=== PATIENT | female | born 1980 | race Caucasian/White ===

== ENCOUNTER 2016-10-27 17:34 | Emergency (ER) | payer OTHER ==
--- NOTE | ~2016-10-27 | EKG ---
PATIENT: DANIELLE BRITO UNIT #: [id number] Ventricular Rate: 75 BPM Atrial Rate: 75 BPM P-R Interval: 128 ms QRS Duration: 82 ms Q-T Interval: 380 ms QTC Calculation(Bezet): 424 ms P [place]: 8 degrees Calculated R [place]: 24 degrees Calculated T [place]: 19 degrees Diagnosis Line: Normal sinus rhythm Diagnosis Line: Normal ECG Diagnosis Line: When compared with ECG of 29-JAN-2016 18:42, Diagnosis Line: No significant change was found Diagnosis Line: Confirmed by JANETH PIERRE MD ([id number]) on Diagnosis Line: 12/13/2016 4:05:21 PM INTERPRETING MD: ERICH
--- NOTE | ~2016-10-27 | CR72 ---
[facility]. [facility] A Service of [facility] RADIOLOGY TEXT RESULTS PATIENT: DANIELLE BRITO LOCATION: SED : 82 UNIT #: [id number] AGE: [address]: Abiel Lizarraga MD SEX: F ORDER DR: [id number] [place] [id number] E MR#: [id number] Acc #: [id number] NAME: DANIELLE BRITO : 1980 SEX: F STUDY DATE/TIME: 10/27/2016 17:35 UNIT: SED ROOM: STUDY DESCRIPTION: CR Chest Single View Portable Attending Physician: Abiel Lizarraga M.D. Ordering Physician: Abiel Lizarraga M.D. Primary Care Physician: Lauren Pate A.P.R.N. MEDICAL IMAGING REPORT This report is preliminary unless electronic signature is present. EXAM Portable chest, 10/27/2016 HISTORY Chest pain and left arm pain and left leg pain beginning today. No known injury, short of breath, chest congestion. FINDINGS A single AP portable view of the chest shows both lungs to be clear. The heart is normal in size. The mediastinal contour is normal. No significant bone abnormalities are seen. IMPRESSION Normal portable chest. Dictated by... Cyrus Peacock M.D. THIS IS AN ELECTRONICALLY VERIFIED REPORT Cyrus Peacock M.D. at 10/28/2016 10:55 AM JIN/kathy TD: 10/28/2016 02:11 JOB #: [id number] MEDICAL IMAGING REPORT
[~2016-10-27 17:34] MED LIST: BIRTH CONTROL PILL PO; GLUMETZA500 MG/BOT; KLONOPIN PO; MEDI-MECLIZINE25 M1 PO; MUCINEX D ER T1 EAC1 PO; PRENATAL COMPLE1 TAB; PROTONIX PO; SYNTHROID PO; ZOLOFT PO
[2016-10-27 18:00] LABS: POC - CKMB 1.2 ng/mL (0.0-7.9); POC - TROPONIN <0.05 ng/mL (<=0.05)
[2016-10-27 18:01] LABS: BASOPHIL% 0.8 % (0-2.5); EOSINOPHIL# 0.1 X10e3 (0-0.7); EOSINOPHIL% 1.2 % (0.0-7.0); HEMATOCRIT 42.3 % (35.0-45.0); HEMOGLOBIN 14.3 gm/dL (12.0-16.0); LYMPHOCYTE# 2.1 X10e3 (1.0-3.5); LYMPHOCYTE% 33.2 % (17.0-45.0); MEAN CORPUSCULAR HEMOGLOBIN 30.9 PG (28-34); MEAN CORPUSCULAR HGB CONC 33.9 g/dL (30-36); MONOCYTE# 0.5 X10e3 (0-1.0); MONOCYTE% 7.5 % (3.0-12.0); NEUTROPHIL# 3.7 X10e3 (1.5-7.1); NEUTROPHIL% 57.3 % (40-75); PLATELET COUNT 226 X10e3 (140-420); RED BLOOD COUNT 4.65 X10e (3.90-5.30); RED CELL DISTRIBUTION WIDTH 12.5 % (11.0-15.5); WHITE BLOOD COUNT 6.4 X10e3 (4.0-10.5)
[2016-10-27 18:05] LABS: DIFF IND NO
[2016-10-27 18:10] LABS: BLOOD UREA NITROGEN 12 mg/dL (9-23); CARBON DIOXIDE 25 mmol/L (22-31); CHLORIDE 106 mmol/L (100-111); CREATININE SERUM 0.8 mg/dL (0.6-1.4); GLOM FILT RATE Estimated ABOVE60 mL/min (>60); GLUCOSE FASTING 91 mg/dL (70-110); POTASSIUM 3.8 mmol/L (3.5-5.1); SODIUM 138 mmol/L (135-145)
== END 2016-10-27 18:31 | disposition home or self-care (01) ==
LOC: SED 17:34
PROVIDERS: Emergency Medicine
DX: R07.89 Other chest pain (principal); F41.9 Anxiety disorder, unspecified; Z90.49 Acquired absence of other specified parts of digestive tract
CPT/HCPCS: 71010; 80048; 82553; 83874; 84484; 85025; 93005; 96374; 99284; J1885

== ENCOUNTER 2017-03-02 13:33 | Emergency (ER) | payer BC ==
--- NOTE | ~2017-03-02 | EKG ---
PATIENT: DANIELLE BRITO UNIT #: [id number] Ventricular Rate: 86 BPM Atrial Rate: 86 BPM P-R Interval: 162 ms QRS Duration: 84 ms Q-T Interval: 352 ms QTC Calculation(Bezet): 421 ms P [place]: 47 degrees Calculated R [place]: 10 degrees Calculated T [place]: 19 degrees Diagnosis Line: Normal sinus rhythm Diagnosis Line: Normal ECG Diagnosis Line: When compared with ECG of 27-OCT-2016 17:10, Diagnosis Line: No significant change was found Diagnosis Line: Confirmed by LITTLE MORALEZ MD ([id number]) on Diagnosis Line: 03/03/2017 3:51:54 PM INTERPRETING MD: KIRT ESPITIA
[2017-03-02] MEDS ORDERED: GLUCOPHAGE XR750 MG PO (14:04)
[2017-03-02 14:31] LABS: POC - CKMB <1.0 ng/mL (0.0-7.9); POC - TROPONIN <0.05 ng/mL (<=0.05)
[2017-03-02 14:39] LABS: BASOPHIL% 0.5 % (0-2.5); EOSINOPHIL# 0.1 X10e3 (0-0.7); EOSINOPHIL% 1.2 % (0.0-7.0); HEMATOCRIT 40.1 % (35.0-45.0); MEAN CORPUSCULAR HEMOGLOBIN 31.7 PG (28-34); MEAN CORPUSCULAR HGB CONC 34.9 g/dL (30-36); MEAN PLATELET VOLUME 6.8 FL (6.5-11.5); MONOCYTE# 0.7 X10e3 (0-1.0); MONOCYTE% 7.7 % (3.0-12.0); NEUTROPHIL# 5.3 X10e3 (1.5-7.1); NEUTROPHIL% 57.6 % (40-75); PLATELET COUNT 305 X10e3 (140-420); RED CELL DISTRIBUTION WIDTH 12.7 % (11.0-15.5); WHITE BLOOD COUNT 9.1 X10e3 (4.0-10.5)
[2017-03-02 14:47] LABS: DIFF IND NO
[2017-03-02 14:52] LABS: URINE SOURCE CLEAN CATCH
[2017-03-02 14:54] LABS: URINE APPEARANCE CLEAR; URINE BILIRUBIN NEG (NEG); URINE BLOOD NEG (NEG); URINE COLOR YELLOW; URINE GLUCOSE NEG (NORM); URINE KETONE TRACE (NEG); URINE LEUKOCYTE ESTERASE NEG (NEG); URINE NITRATE NEG (NEG); URINE PROTEIN NEG (NEG); URINE UROBILINOGEN 0.2 MG/DL (NORM)
[2017-03-02 14:57] LABS: MICRO INDICATED? NO
[2017-03-02 15:03] LABS: ALBUMIN SERUM 4.2 g/dL (3.5-5.0); BILIRUBIN, DIRECT 0.1 mg/dL (0.0-0.2); BILIRUBIN,INDIRECT 0.3 mg/dL (0.0-0.9); BILIRUBIN,TOTAL 0.4 mg/dL (0.2-2.0); BUN/CREATININE RATIO 12.5; CALCIUM SERUM 8.7 mg/dL (8.4-10.2); CREATININE SERUM 0.8 mg/dL (0.6-1.4); GLOM FILT RATE Estimated 94.9 mL/min (>60); POTASSIUM 3.6 mmol/L (3.5-5.1); PROTEIN TOTAL SERUM 7.7 g/dL (6.0-8.3)
== END 2017-03-02 15:48 | disposition home or self-care (01) ==
LOC: SED 13:33
PROVIDERS: Emergency Medicine
DX: H81.10 Benign paroxysmal vertigo, unspecified ear (principal); F41.9 Anxiety disorder, unspecified; K21.9 Gastro-esophageal reflux disease without esophagitis; E03.9 Hypothyroidism, unspecified; Z90.89 Acquired absence of other organs; Z79.899 Other long term (current) drug therapy
CPT/HCPCS: 36415; 80048; 80076; 81003; 82553; 84484; 84703; 85025; 93005; 96361; 96374; 99284; J2405